=== PATIENT | female | born 1965 | race Native Hawaiian/Other Pacific Islander ===

== ENCOUNTER 2018-10-23 03:00 | Emergency (ER) | payer BC ==
[~2018-10-23] VITALS: Ht 152.4 cm; Wt 74.8 kg
[~2018-10-23 03:00] MED LIST: ADIPEX PO; CELEXA20 MG PO; ESTRACE2 MG PO; HYDR25TA60 PO
[2018-10-23 03:32] LABS: PLATELET COUNT 489 K/uL (152-353)
[2018-10-23 03:39] LABS: POTASSIUM 4.1 mmol/L (3.6-5.2)
[2018-10-23 06:34] VITALS: BP 121/77; TEMP 98.1
== END 2018-10-23 06:38 | disposition home or self-care (01) ==
LOC: ED 03:00
PROVIDERS: Emergency Medicine
DX: R10.9 Unspecified abdominal pain (principal); K76.6 Portal hypertension; I85.00 Esophageal varices without bleeding
CPT/HCPCS: 36415; 80053; 82150; 83690; 85027; 96365; 96374; 99284; J2175; J2405; Q9963

== ENCOUNTER 2021-05-02 23:49 | Emergency (ER) | payer BC | END 2021-05-03 01:45 | disposition home or self-care (01) | LOC: ED 23:49 | DX: S80.01XA Contusion of right knee, initial encounter (principal); W01.198A Fall on same level from slipping, tripping and stumbling with subsequent striking against other object, initial encounter; Y93.89 Activity, other specified; Y92.010 Kitchen of single-family (private) house as the place of occurrence of the external cause | CPT/HCPCS: 96372; 99283 ==